=== PATIENT | female | born 1960 | race Caucasian/White ===

== ENCOUNTER 2018-08-28 12:12 | Emergency (ER) | payer OTHER ==
[~2018-08-28] VITALS: Ht 157.5 cm; Wt 53.5 kg
[2018-08-28] MEDS ORDERED: ZOFRAN4 MG PO (12:41)
[2018-08-28] MEDS ORDERED: BENZONATATE100 MG PO (12:41)
[2018-08-28] MEDS ORDERED: MACRODANTIN100 MG PO (12:41)
[2018-08-28] MEDS ORDERED: LOPERAMIDE2 MG PO (12:41)
[2018-08-28] MEDS ORDERED: PHENAZOPYRIDIN100 MG PO (12:41)
[2018-08-28] MEDS ORDERED: PROMETHAZINE 25MG/ NS 50ML (IV) IV ONE (12:45)
[2018-08-28] MEDS ORDERED: SODIUM CHLORIDE 0.9% 1000ML 1,000 ML IV SCH ×2 (12:45→13:15)
--- NOTE | 2018-08-28 13:12 | NUR ---
IVF STOPPED, PT STATES "BURNING." SON CAME OUT TWICE AFTER NURSE AND MD. NO S/S INFILTRATION. IV CHECKED FOR PATENCY. PHENERGAN INTO NS ONE LITER BAG AND WAS LABELED AND EXPLAINED PER POLICY. NO STREAKING NO REDNESS NOTED. IVF D/C'D AND MD EVAL DONE. IV RE-EVALED AND PATENT. NEW IVF OF NS 0.9% HUNG W.O. PT STATES NO PAIN OR BURNING. NO S/S INFILTRATION NOTED.
--- NOTE | 2018-08-28 13:59 | NUR ---
IVF COMPLETE; MD TO ROOM FOR UPDATE.
== END 2018-08-28 14:19 | disposition home or self-care (01) ==
LOC: FSED 12:12
DX: N30.00 Acute cystitis without hematuria (principal); R11.2 Nausea with vomiting, unspecified; E86.0 Dehydration
CPT/HCPCS: 80053; 81003; 82553; 84484; 85025; 99284; J2550